=== PATIENT | female | born 1975 | race Caucasian/White ===

== ENCOUNTER 2019-02-21 13:27 | Emergency (ER) | payer MEDICAID ==
[~2019-02-21] VITALS: Ht 162.6 cm; Wt 91.8 kg
[2019-02-21 13:50] VITALS: Ht 162.6 cm; Wt 91.8 kg
[2019-02-21 16:47] VITALS: BP 128/85
== END 2019-02-21 16:47 | disposition home or self-care (01) ==
LOC: ED 13:27
DX: R51 Headache (principal); R11.0 Nausea
CPT/HCPCS: J3030